=== PATIENT | female | born 1995 | race African-American/Black ===

== ENCOUNTER 2016-05-16 16:47 | Emergency (ER) | payer SELFPAY ==
[~2016-05-16] VITALS: Ht 152.4 cm; Wt 100.0 kg
[~2016-05-16 16:47] MED LIST: BACTRIM DS 8001 TAB PO; BIRTH CONTROL PILLS; CEPHALEXIN500 M1 PO; CIPRO 500MG TA500 MG PO; DOXYCYCLINE 10100 MG PO; FLAGYL500 MG PO; FLEXERIL 1010 MG/TAB PO; HCTZ 25MG TAB25 MG PO; NAPROSYN500 MG PO; NKDA; NO HOME MEDICATIONS; NORCO 325 MG-51 TAB PO; PROTONIX 40MG T40 MG PO; SEPTRA DS 8001 TAB PO; ULTRAM 50MG TAB50 MG PO; VICODIN 5/5001 UDTAB PO; ZOFRAN 4MG T4 MG/TAB PO; ZOFRAN ODT4 MG PO
[2016-05-16 16:52] VITALS: BP 138/47; PULSE 96; TEMP 98.7
== END 2016-05-16 17:22 | disposition home or self-care (01) ==
LOC: COL.ER 16:47
DX: K00.6 Disturbances in tooth eruption (principal); F17.210 Nicotine dependence, cigarettes, uncomplicated

== ENCOUNTER 2016-08-21 13:10 | Emergency (ER) | payer SELFPAY ==
[~2016-08-21] VITALS: Ht 152.4 cm; Wt 100.0 kg
[2016-08-21 13:12] VITALS: BP 139/86; TEMP 99.2
[2016-08-21 14:03] LABS: BASO # 0.1 (0.0-0.2); BASO % 0.8 % (0.0-2.0); EOS # 0.2 (0.0-0.7); EOS % 2.8 % (0-4.0); GRAN # 4.9 (1.4-6.5); GRAN % 65.4 % (42.2-75.2); HEMATOCRIT 39.3 % (37.0-47.0); LYMPH # 1.7 (1.2-3.4); LYMPH % 22.5 % (20.0-51.0); MEAN CELL VOLUME 83 fl (80.0-100.0); MEAN CORPUSCULAR HEMOGLOBIN 27 pg (27.0-31.0); MEAN CORPUSCULAR HGB CONC 33 g/dl (33.0-37.0); MEAN PLATELET VOLUME 10.9 fl (7.4-10.4); MONO # 0.6 (0.1-0.6); MONO % 8.2 % (1.7-9.3); PLATELET COUNT 371 K/mm3 (130-400); RED BLOOD COUNT 4.76 M/mm3 (4.10-5.30); REDCELL DISTRIBUTION WIDTH-CV 14.4 % (11.5-14.5); WHITE BLOOD COUNT 7.4 K/mm3 (4.8-10.8)
[2016-08-21 14:16] LABS: PH 6 (5-8); URINE APPEARANCE Hazy; URINE BACTERIA None Seen /hpf; URINE BILIRUBIN Negative (NEGATIVE); URINE BLOOD Negative (NEGATIVE); URINE COLOR Yellow; URINE GLUCOSE Negative (NEGATIVE); URINE KETONE Negative (NEGATIVE); URINE RBC 0-2 /hpf; URINE WBC 0-2 /hpf
[2016-08-21 14:31] LABS: ADJUSTED CALCIUM 8.7 mg/dL (8.4-10.2); ALBUMIN 4.2 gm/dL (3.5-5.0); BILIRUBIN,TOTAL 0.8 mg/dL (0.0-1.0); CALCIUM 8.9 mg/dL (8.4-10.2); CREATININE, serum 0.64 mg/dL (0.52-1.25); POTASSIUM 3.3 mmol/L (3.4-5.0); TOTAL PROTEIN 7.4 gm/dL (6.4-8.2)
[2016-08-21] MEDS ORDERED: ZOFRAN ODT4 MG PO (14:58)
[2016-08-21] MEDS ORDERED: PROTONIX 40MG T40 MG PO (14:58)
[2016-08-21 15:06] VITALS: PULSE 86
== END 2016-08-21 15:07 | disposition home or self-care (01) ==
LOC: COL.ER 13:10
PROVIDERS: Emergency Medicine
DX: R10.13 Epigastric pain (principal)

== ENCOUNTER 2016-09-21 12:18 | Emergency (ER) | payer SELFPAY ==
[~2016-09-21] VITALS: Ht 152.4 cm; Wt 97.7 kg
[2016-09-21 12:39] VITALS: BP 117/101; PULSE 82; TEMP 98.6
[2016-09-21 13:51] LABS: PH 6 (5-8); URINE APPEARANCE Hazy; URINE BACTERIA None Seen /hpf; URINE BILIRUBIN Negative (NEGATIVE); URINE BLOOD Negative (NEGATIVE); URINE COLOR Yellow; URINE GLUCOSE Negative (NEGATIVE); URINE KETONE Negative (NEGATIVE); URINE RBC 0-2 /hpf; URINE WBC 0-2 /hpf
== END 2016-09-21 14:51 | disposition home or self-care (01) ==
LOC: COL.ER 12:18
PROVIDERS: Physician Assistant
DX: Z03.89 Encounter for observation for other suspected diseases and conditions ruled out (principal); Z32.02 Encounter for pregnancy test, result negative

== ENCOUNTER 2016-11-05 19:15 | Emergency (ER) | payer SELFPAY ==
[~2016-11-05] VITALS: Ht 152.4 cm; Wt 98.4 kg
[2016-11-05 19:18] VITALS: BP 138/77; TEMP 99.1
[2016-11-05 20:30] LABS: HEMATOCRIT 37.7 % (37.0-47.0); HEMOGLOBIN 12.6 g/dl (12.5-16.0); MEAN CELL VOLUME 83 fl (80.0-100.0); MEAN CORPUSCULAR HEMOGLOBIN 28 pg (27.0-31.0); MEAN CORPUSCULAR HGB CONC 33 g/dl (33.0-37.0); MEAN PLATELET VOLUME 11.4 fl (7.4-10.4); PLATELET COUNT 310 K/mm3 (130-400); RED BLOOD COUNT 4.54 M/mm3 (4.10-5.30); REDCELL DISTRIBUTION WIDTH-CV 14.4 % (11.5-14.5); WHITE BLOOD COUNT 8.4 K/mm3 (4.8-10.8)
[2016-11-05 20:44] LABS: ALBUMIN 3.9 gm/dL (3.5-5.0); BILIRUBIN,TOTAL 0.3 mg/dL (0.0-1.0); CALCIUM 8.9 mg/dL (8.4-10.2); CREATININE, serum 0.66 mg/dL (0.52-1.25); POTASSIUM 3.2 mmol/L (3.4-5.0); TOTAL PROTEIN 7.1 gm/dL (6.4-8.2)
[2016-11-05 21:32] VITALS: PULSE 74
== END 2016-11-05 21:32 | disposition home or self-care (01) ==
LOC: COL.ER 19:15
PROVIDERS: Physician Assistant Medical
DX: R60.0 Localized edema (principal)

== ENCOUNTER 2016-12-10 14:45 | Emergency (ER) | payer SELFPAY ==
[~2016-12-10] VITALS: Ht 152.4 cm; Wt 101.2 kg
[2016-12-10 14:48] VITALS: BP 150/93; PULSE 75; TEMP 98.9
== END 2016-12-10 16:28 | disposition home or self-care (01) ==
LOC: COL.ER 14:45
DX: R60.0 Localized edema (principal)

== ENCOUNTER 2017-02-10 17:19 | Emergency (ER) | payer SELFPAY ==
[~2017-02-10] VITALS: Ht 152.4 cm; Wt 100.0 kg
[2017-02-10 17:21] VITALS: TEMP 99.2
[2017-02-10 17:50] LABS: COLLECTION METHOD CLEAN CATCH
[2017-02-10 18:16] LABS: MUCOUS Present /lpf; PH 5 (5-8); URINE APPEARANCE Hazy; URINE BACTERIA None Seen /hpf; URINE BILIRUBIN Positive (NEGATIVE); URINE BLOOD Negative (NEGATIVE); URINE COLOR Amber; URINE GLUCOSE Negative (NEGATIVE); URINE KETONE 1+ (NEGATIVE); URINE LEUKOCYTE ESTERASE Negative (NEGATIVE); URINE PROTEIN(semi-quant) 2+ (NEGATIVE); URINE RBC 0-2 /hpf; URINE UROBILINOGEN >=4.0 mg/dL (NEGATIVE)
[2017-02-10] MEDS ORDERED: BONINE25 MG PO (18:27)
[2017-02-10 18:38] VITALS: BP 102/78; PULSE 87
== END 2017-02-10 18:38 | disposition home or self-care (01) ==
LOC: COL.ER 17:19
PROVIDERS: Nurse Practitioner
DX: R42 Dizziness and giddiness (principal); F17.210 Nicotine dependence, cigarettes, uncomplicated; Z32.02 Encounter for pregnancy test, result negative

== ENCOUNTER 2017-05-17 11:57 | Emergency (ER) | payer OTHER ==
[~2017-05-17] VITALS: Ht 152.4 cm; Wt 97.7 kg
[~2017-05-17 11:57] MED LIST changes: +BONINE25 MG PO; +MAGIC MOUTH PO
[2017-05-17 12:27] VITALS: BP 138/77; PULSE 86; TEMP 98.7
== END 2017-05-17 15:05 | disposition home or self-care (01) ==
LOC: COL.ER 11:57
DX: J02.9 Acute pharyngitis, unspecified (principal); F17.210 Nicotine dependence, cigarettes, uncomplicated; Z98.890 Other specified postprocedural states

== ENCOUNTER 2017-06-17 10:36 | Emergency (ER) | payer OTHER ==
[~2017-06-17] VITALS: Ht 152.4 cm; Wt 95.5 kg
[2017-06-17 10:46] VITALS: BP 134/72; PULSE 85; TEMP 99.1
[2017-06-17] MEDS ORDERED: BACTRIM DS 8001 TAB PO (11:30)
== END 2017-06-17 11:35 | disposition home or self-care (01) ==
LOC: COL.ER 10:36
DX: J33.9 Nasal polyp, unspecified (principal); F17.210 Nicotine dependence, cigarettes, uncomplicated; Z86.14 Personal history of Methicillin resistant Staphylococcus aureus infection

== ENCOUNTER → 2017-06-18 | Outpatient (CLI) | payer OTHER | LOC: ZCOL.LAB 14:21 | DX: J34.89 Other specified disorders of nose and nasal sinuses (principal) ==

== ENCOUNTER 2017-08-18 11:11 | Emergency (ER) | payer OTHER ==
[~2017-08-18] VITALS: Ht 152.4 cm; Wt 99.9 kg
[2017-08-18 12:12] VITALS: BP 144/81; PULSE 78; TEMP 98.1
[2017-08-18 12:19] LABS: BASO # 0.1 (0.0-0.2); BASO % 0.9 % (0.0-2.0); EOS # 0.3 (0.0-0.7); EOS % 4.3 % (0-4.0); GRAN # 4.4 (1.4-6.5); GRAN % 61.8 % (42.2-75.2); HEMATOCRIT 39.2 % (37.0-47.0); LYMPH # 1.7 (1.2-3.4); LYMPH % 23.4 % (20.0-51.0); MEAN CELL VOLUME 83 fl (80.0-100.0); MEAN CORPUSCULAR HEMOGLOBIN 28 pg (27.0-31.0); MEAN CORPUSCULAR HGB CONC 33 g/dl (33.0-37.0); MEAN PLATELET VOLUME 10.6 fl (7.4-10.4); MONO # 0.7 (0.1-0.6); MONO % 9.5 % (1.7-9.3); PLATELET COUNT 366 K/mm3 (130-400); REDCELL DISTRIBUTION WIDTH-CV 13.9 % (11.5-14.5)
[2017-08-18 12:34] LABS: ALBUMIN 3.9 gm/dL (3.5-5.0); BILIRUBIN,TOTAL 0.3 mg/dL (0.0-1.0); CALCIUM 9.1 mg/dL (8.4-10.2); CREATININE, serum 0.65 mg/dL (0.52-1.25); POTASSIUM 3.6 mmol/L (3.4-5.0); TOTAL PROTEIN 7.9 gm/dL (6.4-8.2)
[2017-08-18] MEDS ORDERED: ZOFRAN ODT4 MG PO (12:41)
== END 2017-08-18 12:50 | disposition home or self-care (01) ==
LOC: COL.ER 11:11
PROVIDERS: Physician Assistant Medical
DX: R11.0 Nausea (principal); R19.7 Diarrhea, unspecified; F17.210 Nicotine dependence, cigarettes, uncomplicated

== ENCOUNTER 2017-10-29 21:25 | Emergency (ER) | payer OTHER ==
[~2017-10-29] VITALS: Ht 152.4 cm; Wt 98.0 kg
[2017-10-29 21:29] VITALS: BP 126/84; PULSE 98; TEMP 99.3
== END 2017-10-29 22:24 | disposition home or self-care (01) ==
LOC: COL.ER 21:25
DX: S93.402A Sprain of unspecified ligament of left ankle, initial encounter (principal); F17.210 Nicotine dependence, cigarettes, uncomplicated; X50.0XXA Overexertion from strenuous movement or load, initial encounter; Y92.410 Unspecified street and highway as the place of occurrence of the external cause

== ENCOUNTER 2017-11-22 13:20 | Emergency (ER) | payer OTHER ==
[~2017-11-22 13:20] MED LIST changes: +AMOXICILLIN 8751 TAB PO
[2017-11-22 13:31] VITALS: BP 123/89; PULSE 100; TEMP 99
== END 2017-11-22 13:40 | disposition home or self-care (01) ==
LOC: COL.ER 13:20
DX: S61.412D Laceration without foreign body of left hand, subsequent encounter (principal); S61.411D Laceration without foreign body of right hand, subsequent encounter; X58.XXXD Exposure to other specified factors, subsequent encounter

== ENCOUNTER 2018-01-30 12:47 | Emergency (ER) | payer OTHER ==
[~2018-01-30] VITALS: Ht 152.4 cm; Wt 90.9 kg
[2018-01-30 12:50] VITALS: TEMP 98.7
[2018-01-30 13:32] LABS: BASO # 0.1 (0.0-0.2); BASO % 0.9 % (0.0-2.0); EOS # 0.2 (0.0-0.7); EOS % 2.2 % (0-4.0); GRAN # 5.3 (1.4-6.5); GRAN % 69.6 % (42.2-75.2); HEMATOCRIT 41.2 % (37.0-47.0); HEMOGLOBIN 13.5 g/dl (12.5-16.0); LYMPH # 1.5 (1.2-3.4); LYMPH % 19.8 % (20.0-51.0); MEAN CELL VOLUME 84 fl (80.0-100.0); MEAN CORPUSCULAR HEMOGLOBIN 28 pg (27.0-31.0); MEAN CORPUSCULAR HGB CONC 33 g/dl (33.0-37.0); MEAN PLATELET VOLUME 10.5 fl (7.4-10.4); MONO # 0.6 (0.1-0.6); MONO % 7.2 % (1.7-9.3); PLATELET COUNT 392 K/mm3 (130-400); RED BLOOD COUNT 4.89 M/mm3 (4.10-5.30); REDCELL DISTRIBUTION WIDTH-CV 14.5 % (11.5-14.5)
[2018-01-30 13:41] LABS: ALBUMIN 4.1 gm/dL (3.5-5.0); BILIRUBIN,TOTAL 0.3 mg/dL (0.0-1.0); CALCIUM 9.1 mg/dL (8.4-10.2); CREATININE, serum 0.62 mg/dL (0.52-1.25); POTASSIUM 3.9 mmol/L (3.4-5.0); TOTAL PROTEIN 7.6 gm/dL (6.4-8.2)
[2018-01-30 13:59] VITALS: BP 133/90; PULSE 96
== END 2018-01-30 14:00 | disposition home or self-care (01) ==
LOC: COL.ER 12:47
PROVIDERS: Physician Assistant
DX: R60.9 Edema, unspecified (principal); F17.210 Nicotine dependence, cigarettes, uncomplicated

== ENCOUNTER 2018-05-12 15:23 | Emergency (ER) | payer SELFPAY ==
[~2018-05-12] VITALS: Ht 152.4 cm; Wt 94.5 kg
[2018-05-12 15:25] VITALS: TEMP 98.2
[2018-05-12 16:19] LABS: BASO # 0.1 (0.0-0.2); BASO % 0.8 % (0.0-2.0); EOS # 0.1 (0.0-0.7); EOS % 1.4 % (0-4.0); GRAN # 6.3 (1.4-6.5); GRAN % 68.9 % (42.2-75.2); HEMATOCRIT 38.9 % (37.0-47.0); HEMOGLOBIN 12.7 g/dl (12.5-16.0); LYMPH # 1.6 (1.2-3.4); LYMPH % 17.9 % (20.0-51.0); MEAN CELL VOLUME 84 fl (80.0-100.0); MEAN CORPUSCULAR HEMOGLOBIN 27 pg (27.0-31.0); MEAN CORPUSCULAR HGB CONC 33 g/dl (33.0-37.0); MEAN PLATELET VOLUME 10.9 fl (7.4-10.4); MONO % 10.7 % (1.7-9.3); PLATELET COUNT 401 K/mm3 (130-400); RED BLOOD COUNT 4.64 M/mm3 (4.10-5.30); REDCELL DISTRIBUTION WIDTH-CV 14.2 % (11.5-14.5)
[2018-05-12 17:07] VITALS: BP 149/92; PULSE 88
== END 2018-05-12 17:10 | disposition home or self-care (01) ==
LOC: COL.ER 15:23
PROVIDERS: Emergency Medicine
DX: N94.6 Dysmenorrhea, unspecified (principal); N93.8 Other specified abnormal uterine and vaginal bleeding
CPT/HCPCS: J1885

== ENCOUNTER 2018-05-16 22:17 | Emergency (ER) | payer SELFPAY ==
[~2018-05-16] VITALS: Ht 152.4 cm; Wt 90.9 kg
[2018-05-16 22:19] VITALS: TEMP 99.7
[2018-05-16 23:05] LABS: COLLECTION METHOD CLEAN CATCH
[2018-05-16 23:09] LABS: BASO # 0.1 (0.0-0.2); BASO % 0.7 % (0.0-2.0); EOS # 0.1 (0.0-0.7); EOS % 1.2 % (0-4.0); GRAN # 4.3 (1.4-6.5); GRAN % 64.8 % (42.2-75.2); HEMATOCRIT 37.3 % (37.0-47.0); HEMOGLOBIN 12.2 g/dl (12.5-16.0); LYMPH # 1.3 (1.2-3.4); LYMPH % 19.9 % (20.0-51.0); MEAN CELL VOLUME 84 fl (80.0-100.0); MEAN CORPUSCULAR HEMOGLOBIN 27 pg (27.0-31.0); MEAN CORPUSCULAR HGB CONC 33 g/dl (33.0-37.0); MEAN PLATELET VOLUME 10.8 fl (7.4-10.4); MONO # 0.9 (0.1-0.6); PLATELET COUNT 326 K/mm3 (130-400); RED BLOOD COUNT 4.45 M/mm3 (4.10-5.30); REDCELL DISTRIBUTION WIDTH-CV 13.7 % (11.5-14.5)
[2018-05-16 23:21] LABS: HYALINE CAST >12 /lpf; MUCOUS Present /lpf; PH 6 (5-8); SQUAMOUS EPITHELIAL 0-2 /hpf; URINE APPEARANCE Cloudy; URINE BACTERIA Rare /hpf; URINE BILIRUBIN Negative (NEGATIVE); URINE BLOOD 2+ (NEGATIVE); URINE COLOR Yellow; URINE GLUCOSE Negative (NEGATIVE); URINE KETONE Negative (NEGATIVE); URINE LEUKOCYTE ESTERASE 3+ (NEGATIVE); URINE NITRATE Positive (NEGATIVE); URINE PROTEIN(semi-quant) 2+ (NEGATIVE); URINE RBC 20-50 /hpf; URINE UROBILINOGEN >=4.0 mg/dL (NEGATIVE)
[2018-05-16] MEDS ORDERED: MACROBID 1100 MG/CAP PO (23:27)
[2018-05-17 00:39] VITALS: BP 128/80; PULSE 99
== END 2018-05-17 00:39 | disposition home or self-care (01) ==
LOC: COL.ER 22:17
PROVIDERS: Family Medicine
DX: N30.90 Cystitis, unspecified without hematuria (principal)
CPT/HCPCS: J0696; J1885; J7030

== ENCOUNTER → 2018-10-13 | Emergency (ER) | payer SELFPAY ==
[~2018-10-13] VITALS: Ht 152.4 cm; Wt 90.9 kg
[~2018-10-13] MED LIST changes: +K-DUR20 MEQ PO; +MACROBID 1100 MG/CAP PO; +OMNICEF 300MG300 MG PO
[2018-10-13 20:03] LABS: BASO # 0.1 (0.0-0.2); BASO % 0.6 % (0.0-2.0); EOS % 0.2 % (0-4.0); GRAN # 5.6 (1.4-6.5); GRAN % 68.1 % (42.2-75.2); HEMATOCRIT 37.4 % (37.0-47.0); HEMOGLOBIN 12.1 g/dl (12.5-16.0); LYMPH # 1.3 (1.2-3.4); MEAN CELL VOLUME 84 fl (80.0-100.0); MEAN CORPUSCULAR HEMOGLOBIN 27 pg (27.0-31.0); MEAN CORPUSCULAR HGB CONC 32 g/dl (33.0-37.0); MONO # 1.2 (0.1-0.6); MONO % 14.9 % (1.7-9.3); PLATELET COUNT 327 K/mm3 (130-400); RED BLOOD COUNT 4.48 M/mm3 (4.10-5.30); REDCELL DISTRIBUTION WIDTH-CV 14.3 % (11.5-14.5)
[2018-10-13 20:18] LABS: ALANINE AMINOTRANSFERASE 13 U/L (9-52); ALBUMIN 3.9 gm/dL (3.5-5.0); ALKALINE PHOSPHATASE 102 U/L (50-136); ANION GAP 9 mmol/L (7-16); AST,SGOT 27 U/L (15-37); BILIRUBIN,TOTAL 0.5 mg/dL (0.0-1.0); BLOOD UREA NITROGEN 6 mg/dL (7-17); CALCIUM 8.7 mg/dL (8.4-10.2); CARBON DIOXIDE 29 mmol/L (22-30); CHLORIDE 100 mmol/L (98-107); CREATININE, serum 0.81 (0.52-1.25); GLUCOSE 93 mg/dL (74-106); SODIUM 138 mmol/L (137-145); TOTAL PROTEIN 7.7 gm/dL (6.4-8.2)
[2018-10-13 20:22] LABS: POTASSIUM 2.8 mmol/L (3.4-5.0)
[2018-10-13 20:36] LABS: C-REACTIVE PROTEIN 20.5 mg/dL (0.0-0.9); HCG,QUANTITATIVE < 2 mIU/mL (0-5)
[2018-10-13 20:39] VITALS: BP 117/105; PULSE 93; TEMP 102.2
[2018-10-13 21:07] LABS: COLLECTION METHOD CLEAN CATCH
[2018-10-13 21:18] LABS: STREP SCREEN NEGATIVE
[2018-10-13 21:22] LABS: MUCOUS Present /lpf; PH 6 (5-8); URINE APPEARANCE Cloudy; URINE BACTERIA Rare /hpf; URINE BILIRUBIN Negative (NEGATIVE); URINE BLOOD 1+ (NEGATIVE); URINE COLOR Amber; URINE GLUCOSE Negative (NEGATIVE); URINE KETONE Negative (NEGATIVE); URINE LEUKOCYTE ESTERASE 3+ (NEGATIVE); URINE NITRATE Positive (NEGATIVE); URINE PROTEIN(semi-quant) 2+ (NEGATIVE); URINE UROBILINOGEN >=4.0 mg/dL (NEGATIVE)
== END ==
LOC: COL.ER 18:53
PROVIDERS: Emergency Medicine
DX: N39.0 Urinary tract infection, site not specified (principal); E87.6 Hypokalemia; F17.210 Nicotine dependence, cigarettes, uncomplicated
CPT/HCPCS: J7030

== ENCOUNTER 2019-01-06 20:11 | Emergency (ER) | payer SELFPAY ==
[~2019-01-06] VITALS: Ht 152.4 cm; Wt 90.9 kg
[2019-01-06 20:17] VITALS: BP 140/83; TEMP 98.6
[2019-01-06 20:41] LABS: COLLECTION METHOD CLEAN CATCH
[2019-01-06 21:03] LABS: MUCOUS Present /lpf; PH 6 (5-8); URINE APPEARANCE Clear; URINE BACTERIA Rare /hpf; URINE BILIRUBIN Negative (NEGATIVE); URINE BLOOD Negative (NEGATIVE); URINE COLOR Yellow; URINE GLUCOSE Negative (NEGATIVE); URINE KETONE Negative (NEGATIVE); URINE LEUKOCYTE ESTERASE Trace (NEGATIVE); URINE NITRATE Negative (NEGATIVE); URINE PROTEIN(semi-quant) Negative (NEGATIVE)
[2019-01-06 22:04] VITALS: PULSE 81
== END 2019-01-06 22:04 | disposition home or self-care (01) ==
LOC: COL.ER 20:11
PROVIDERS: Nurse Practitioner
DX: Z20.2 Contact with and (suspected) exposure to infections with a predominantly sexual mode of transmission (principal); F17.210 Nicotine dependence, cigarettes, uncomplicated
CPT/HCPCS: J0696

== ENCOUNTER 2019-03-20 09:08 | Emergency (ER) | payer SELFPAY ==
[~2019-03-20] VITALS: Ht 165.1 cm; Wt 95.5 kg
[2019-03-20 09:17] VITALS: BP 142/68; TEMP 98.4
[2019-03-20] MEDS ORDERED: NORCO 325 MG-51 TAB PO (09:43)
[2019-03-20] MEDS ORDERED: AMOXICILLIN 50500 MG PO (09:43)
[2019-03-20 10:25] VITALS: PULSE 87
== END 2019-03-20 10:25 | disposition home or self-care (01) ==
LOC: COL.ER 09:08
DX: K02.9 Dental caries, unspecified (principal); F17.210 Nicotine dependence, cigarettes, uncomplicated

== ENCOUNTER 2019-03-24 09:43 | Emergency (ER) | payer SELFPAY ==
[~2019-03-24] VITALS: Ht 152.4 cm; Wt 95.3 kg
[~2019-03-24 09:43] MED LIST changes: +AMOXICILLIN 50500 MG PO
[2019-03-24 09:47] VITALS: BP 157/98; PULSE 84; TEMP 99.1
[2019-03-24] MEDS ORDERED: NORCO 325 MG-51 TAB PO (13:09)
[2019-03-24] MEDS ORDERED: CLEOCIN HCL300 MG PO (13:09)
== END 2019-03-24 11:00 | disposition left against medical advice (07) ==
LOC: COL.ER 09:43
DX: K04.7 Periapical abscess without sinus (principal)

== ENCOUNTER 2019-03-24 11:42 | Emergency (ER) | payer SELFPAY ==
[~2019-03-24] VITALS: Ht 152.4 cm; Wt 95.5 kg
[2019-03-24 11:49] VITALS: TEMP 98.6
[2019-03-24] MEDS ORDERED: CLEOCIN HCL300 MG PO (13:09)
[2019-03-24] MEDS ORDERED: NORCO 325 MG-51 TAB PO (13:09)
[2019-03-24 13:20] VITALS: BP 168/95; PULSE 84
== END 2019-03-24 13:24 | disposition home or self-care (01) ==
LOC: COL.ER 11:42
DX: K04.7 Periapical abscess without sinus (principal); F17.210 Nicotine dependence, cigarettes, uncomplicated
CPT/HCPCS: J1100; J2405; J7030

== ENCOUNTER 2019-03-28 01:10 | Emergency (ER) | payer SELFPAY ==
[~2019-03-28] VITALS: Ht 152.4 cm; Wt 95.5 kg
[~2019-03-28 01:10] MED LIST changes: +CLEOCIN HCL300 MG PO
[2019-03-28 01:20] VITALS: BP 172/88; PULSE 83; TEMP 98.5
[2019-03-28] MEDS ORDERED: NORCO 325 MG-51 TAB PO (01:55)
== END 2019-03-28 02:03 | disposition home or self-care (01) ==
LOC: COL.ER 01:10
DX: K08.89 Other specified disorders of teeth and supporting structures (principal); F17.210 Nicotine dependence, cigarettes, uncomplicated

== ENCOUNTER 2019-05-06 22:36 | Emergency (ER) | payer SELFPAY ==
[~2019-05-06] VITALS: Ht 152.4 cm; Wt 95.5 kg
[2019-05-06 22:47] VITALS: TEMP 100
[2019-05-06] MEDS ORDERED: AMOXICILLIN 8751 TAB PO (23:18)
[2019-05-06] MEDS ORDERED: NORCO 325 MG-51 TAB PO (23:18)
[2019-05-06 23:37] VITALS: BP 163/87; PULSE 91
== END 2019-05-06 23:37 | disposition home or self-care (01) ==
LOC: COL.ER 22:36
DX: K08.89 Other specified disorders of teeth and supporting structures (principal)

== ENCOUNTER 2019-05-17 13:31 | Emergency (ER) | payer SELFPAY ==
[~2019-05-17] VITALS: Ht 152.4 cm; Wt 95.5 kg
[2019-05-17 13:56] VITALS: BP 149/91; TEMP 98.7
[2019-05-17] MEDS ORDERED: CLEOCIN HCL300 MG PO (15:50)
[2019-05-17 16:10] VITALS: PULSE 88
== END 2019-05-17 16:10 | disposition home or self-care (01) ==
LOC: COL.ER 13:31
DX: K08.89 Other specified disorders of teeth and supporting structures (principal)

== ENCOUNTER 2019-08-15 15:34 | Emergency (ER) | payer SELFPAY ==
[~2019-08-15] VITALS: Ht 152.4 cm; Wt 104.5 kg
[2019-08-15 15:51] VITALS: BP 125/97; TEMP 98.4
[2019-08-15 16:36] VITALS: PULSE 90
== END 2019-08-15 16:37 | disposition home or self-care (01) ==
LOC: COL.ER 15:34
DX: S93.402A Sprain of unspecified ligament of left ankle, initial encounter (principal); W19.XXXA Unspecified fall, initial encounter; X50.1XXA Overexertion from prolonged static or awkward postures, initial encounter; Y92.009 Unspecified place in unspecified non-institutional (private) residence as the place of occurrence of the external cause

== ENCOUNTER 2019-10-27 01:43 | Emergency (ER) | payer SELFPAY ==
[~2019-10-27] VITALS: Ht 152.4 cm; Wt 130.9 kg
[2019-10-27 01:46] VITALS: TEMP 97.9
[2019-10-27] MEDS ORDERED: BACTRIM DS 8001 TAB PO (02:01)
[2019-10-27 02:25] VITALS: BP 152/70; PULSE 80
== END 2019-10-27 02:25 | disposition home or self-care (01) ==
LOC: COL.ER 01:43
DX: N61.0 Mastitis without abscess (principal); F17.210 Nicotine dependence, cigarettes, uncomplicated

== ENCOUNTER 2019-11-01 15:10 | Emergency (ER) | payer SELFPAY ==
[~2019-11-01] VITALS: Ht 152.4 cm; Wt 127.3 kg
[2019-11-01 15:15] VITALS: BP 144/99; PULSE 106; TEMP 98.5
== END 2019-11-01 16:08 | disposition home or self-care (01) ==
LOC: COL.ER 15:10
DX: N61.1 Abscess of the breast and nipple (principal); F17.210 Nicotine dependence, cigarettes, uncomplicated

== ENCOUNTER 2020-02-29 03:13 | Emergency (ER) | payer SELFPAY ==
[~2020-02-29] VITALS: Ht 152.4 cm; Wt 122.7 kg
[2020-02-29 03:21] VITALS: TEMP 97.8
[2020-02-29 03:50] LABS: BASO # 0.1 (0.0-0.2); BASO % 0.8 % (0.0-2.0); EOS # 0.5 (0.0-0.7); EOS % 5.2 % (0-4.0); GRAN # 6.2 (1.4-6.5); GRAN % 63.9 % (42.2-75.2); HEMATOCRIT 39.9 % (37.0-47.0); HEMOGLOBIN 12.8 g/dl (12.5-16.0); LYMPH % 21.1 % (20.0-51.0); MEAN CELL VOLUME 80 fl (80.0-100.0); MEAN CORPUSCULAR HEMOGLOBIN 26 pg (27.0-31.0); MEAN CORPUSCULAR HGB CONC 32 g/dl (33.0-37.0); MEAN PLATELET VOLUME 10.1 fl (7.4-10.4); MONO # 0.8 (0.1-0.6); MONO % 8.6 % (1.7-9.3); PLATELET COUNT 447 K/mm3 (130-400); RED BLOOD COUNT 4.96 M/mm3 (4.10-5.30); REDCELL DISTRIBUTION WIDTH-CV 15.8 % (11.5-14.5)
[2020-02-29 03:59] LABS: ALANINE AMINOTRANSFERASE 27 U/L (4-34); ALBUMIN 4.5 gm/dL (3.5-5.0); ALKALINE PHOSPHATASE 120 U/L (50-136); ANION GAP 6 mmol/L (7-16); AST,SGOT 36 U/L (15-37); BILIRUBIN,TOTAL 0.4 mg/dL (0.0-1.0); BLOOD UREA NITROGEN 10 mg/dL (7-17); C-REACTIVE PROTEIN 2.4 mg/dL (0.0-0.9); CALCIUM 9.4 mg/dL (8.4-10.2); CARBON DIOXIDE 31 mmol/L (22-30); CHLORIDE 103 mmol/L (98-107); CREATININE, serum 0.68 (0.52-1.25); GLUCOSE 109 mg/dL (74-106); LIPASE 68 U/L (23-300); POTASSIUM 3.6 mmol/L (3.4-5.0); SODIUM 140 mmol/L (137-145); TOTAL PROTEIN 8.3 gm/dL (6.4-8.2)
[2020-02-29 04:10] LABS: TROPONIN-I < 0.012 ng/mL (0.000-0.035)
[2020-02-29] MEDS ORDERED: FLEXERIL 1010 MG/TAB PO (05:39)
[2020-02-29 06:58] VITALS: BP 121/69; PULSE 85
== END 2020-02-29 07:00 | disposition home or self-care (01) ==
LOC: COL.ER 03:13
PROVIDERS: Emergency Medicine
DX: R07.89 Other chest pain (principal); Z32.02 Encounter for pregnancy test, result negative
CPT/HCPCS: J1885

== ENCOUNTER 2020-07-22 08:22 | Emergency (ER) | payer SELFPAY ==
[~2020-07-22] VITALS: Ht 152.4 cm; Wt 136.4 kg
[2020-07-22 10:23] VITALS: BP 143/90; PULSE 94; TEMP 98
[2020-07-22] MEDS ORDERED: NORCO 325 MG-51 TAB PO ×2 (12:40)
== END 2020-07-22 10:23 | disposition home or self-care (01) ==
LOC: COL.ER 08:22
DX: M25.572 Pain in left ankle and joints of left foot (principal); E66.9 Obesity, unspecified; F17.210 Nicotine dependence, cigarettes, uncomplicated; Z68.43 Body mass index [BMI] 50.0-59.9, adult; X50.9XXA Other and unspecified overexertion or strenuous movements or postures, initial encounter; Y92.59 Other trade areas as the place of occurrence of the external cause; Y99.0 Civilian activity done for income or pay

== ENCOUNTER 2020-08-17 11:44 | Emergency (ER) | payer SELFPAY ==
[~2020-08-17] VITALS: Ht 152.4 cm; Wt 136.4 kg
[2020-08-17 12:08] VITALS: TEMP 98.4
[2020-08-17 12:15] VITALS: BP 140/97; PULSE 91
== END 2020-08-17 12:15 | disposition home or self-care (01) ==
LOC: COL.ER 11:44
DX: Z00.00 Encounter for general adult medical examination without abnormal findings (principal); F17.210 Nicotine dependence, cigarettes, uncomplicated

== ENCOUNTER 2020-10-17 13:57 | Emergency (ER) | payer SELFPAY ==
[~2020-10-17] VITALS: Ht 152.4 cm; Wt 136.4 kg
[2020-10-17 14:43] VITALS: TEMP 100.5
[2020-10-17 15:18] VITALS: BP 135/70; PULSE 98
== END 2020-10-17 15:20 | disposition home or self-care (01) ==
LOC: COL.ER 13:57
DX: U07.1 COVID-19 (principal)

== ENCOUNTER 2020-11-27 21:52 | Emergency (ER) | payer SELFPAY ==
[~2020-11-27] VITALS: Ht 152.4 cm; Wt 136.4 kg
[2020-11-27 22:03] VITALS: TEMP 98.8
[2020-11-27 22:26] LABS: STREP SCREEN NEGATIVE
[2020-11-27 23:03] VITALS: BP 145/70; PULSE 64
== END 2020-11-27 23:03 | disposition home or self-care (01) ==
LOC: COL.ER 21:52
PROVIDERS: Emergency Medicine
DX: U07.1 COVID-19 (principal)

== ENCOUNTER 2021-01-31 19:36 | Emergency (ER) | payer SELFPAY ==
[~2021-01-31] VITALS: Ht 152.4 cm; Wt 136.4 kg
[2021-01-31 19:55] VITALS: BP 136/96; TEMP 98.1
[2021-01-31 20:10] VITALS: PULSE 102
== END 2021-01-31 20:11 | disposition home or self-care (01) ==
LOC: COL.ER 19:36
DX: S20.419A Abrasion of unspecified back wall of thorax, initial encounter (principal); F17.200 Nicotine dependence, unspecified, uncomplicated; X58.XXXA Exposure to other specified factors, initial encounter

== ENCOUNTER 2021-04-02 15:32 | Emergency (ER) | payer SELFPAY ==
[~2021-04-02] VITALS: Ht 152.4 cm; Wt 136.4 kg
[2021-04-02 16:10] VITALS: BP 163/101; TEMP 97.9
[2021-04-02 16:34] LABS: COLLECTION METHOD CLEAN CATCH
[2021-04-02 16:47] LABS: MUCOUS Present (NOT PRESENT); PH 6 (5-8); URINE APPEARANCE Hazy (CLEAR/HAZY); URINE BACTERIA None Seen (NONE SEEN); URINE BILIRUBIN Negative (NEGATIVE); URINE BLOOD 3+ (NEGATIVE); URINE COLOR Yellow (YELLOW); URINE GLUCOSE Negative (NEGATIVE); URINE KETONE Negative (NEGATIVE); URINE LEUKOCYTE ESTERASE Negative (NEGATIVE); URINE NITRATE Negative (NEGATIVE); URINE PROTEIN(semi-quant) Negative (NEGATIVE); URINE RBC >50 /hpf (0-2)
[2021-04-02 18:13] LABS: BASO % 0.4 % (0.0-2.0); EOS # 0.4 K/mm3 (0.0-0.7); EOS % 4.5 % (0.0-4.0); GRAN # 5.7 K/mm3 (1.4-6.5); HEMATOCRIT 38.6 % (37.0-47.0); HEMOGLOBIN 11.7 g/dl (12.5-16.0); LYMPH # 2.2 K/mm3 (1.2-3.4); LYMPH % 23.4 % (20.0-51.0); MEAN CELL VOLUME 83 fl (80.0-100.0); MEAN CORPUSCULAR HEMOGLOBIN 25 pg (27-31); MEAN CORPUSCULAR HGB CONC 30 g/dl (33.0-37.0); MEAN PLATELET VOLUME 10.8 fl (7.4-10.4); MONO % 10.4 % (1.7-9.3); PLATELET COUNT 389 K/mm3 (130-400); RED BLOOD COUNT 4.65 M/mm3 (4.10-5.30); REDCELL DISTRIBUTION WIDTH-CV 17.2 % (11.5-14.5)
[2021-04-02 18:32] LABS: ALBUMIN 3.6 gm/dL (3.5-5.0); BILIRUBIN,TOTAL 0.3 mg/dL (0.2-1.2); CALCIUM 8.9 mg/dL (8.4-10.2); CREATININE, serum 0.76 mg/dL (0.57-1.11); TOTAL PROTEIN 6.9 gm/dL (6.2-8.1)
[2021-04-02 18:45] VITALS: PULSE 101
== END 2021-04-02 18:45 | disposition home or self-care (01) ==
LOC: COL.ER 15:32
PROVIDERS: Emergency Medicine
DX: N93.9 Abnormal uterine and vaginal bleeding, unspecified (principal); F17.210 Nicotine dependence, cigarettes, uncomplicated; E66.9 Obesity, unspecified; Z32.02 Encounter for pregnancy test, result negative; Z68.43 Body mass index [BMI] 50.0-59.9, adult

== ENCOUNTER 2021-04-16 14:13 | Emergency (ER) | payer SELFPAY ==
[~2021-04-16] VITALS: Ht 152.4 cm; Wt 140.9 kg
[2021-04-16 15:27] VITALS: TEMP 98.6
[2021-04-16 15:59] LABS: BASO % 0.3 % (0.0-2.0); EOS # 0.4 K/mm3 (0.0-0.7); EOS % 4.7 % (0.0-4.0); GRAN # 5.8 K/mm3 (1.4-6.5); HEMOGLOBIN 11.3 g/dl (12.5-16.0); LYMPH # 2.1 K/mm3 (1.2-3.4); LYMPH % 22.8 % (20.0-51.0); MEAN CELL VOLUME 83 fl (80.0-100.0); MEAN CORPUSCULAR HEMOGLOBIN 26 pg (27-31); MEAN CORPUSCULAR HGB CONC 31 g/dl (33.0-37.0); MEAN PLATELET VOLUME 10.6 fl (7.4-10.4); MONO # 0.7 K/mm3 (0.1-0.6); MONO % 7.8 % (1.7-9.3); PLATELET COUNT 418 K/mm3 (130-400); RED BLOOD COUNT 4.33 M/mm3 (4.10-5.30); REDCELL DISTRIBUTION WIDTH-CV 17.1 % (11.5-14.5)
[2021-04-16] MEDS ORDERED: LOESTRIN1.5/30 28DAY PO (16:30)
[2021-04-16 17:15] VITALS: BP 150/96; PULSE 99
== END 2021-04-16 17:16 | disposition home or self-care (01) ==
LOC: COL.ER 14:13
PROVIDERS: Physician Assistant
DX: N93.9 Abnormal uterine and vaginal bleeding, unspecified (principal)
CPT/HCPCS: J1885

== ENCOUNTER 2021-05-23 16:55 | Emergency (ER) | payer SELFPAY ==
[~2021-05-23] VITALS: Ht 152.4 cm; Wt 140.9 kg
[~2021-05-23 16:55] MED LIST changes: +LOESTRIN1.5/30 28DAY PO
[2021-05-23 17:05] VITALS: TEMP 98.8
[2021-05-23] MEDS ORDERED: MOTRIN 800800 MG/TAB PO (17:21)
[2021-05-23 18:24] LABS: HEMATOCRIT 39.7 % (37.0-47.0); HEMOGLOBIN 12.4 g/dl (12.5-16.0); MEAN CELL VOLUME 81 fl (80.0-100.0); MEAN CORPUSCULAR HEMOGLOBIN 25 pg (27-31); MEAN CORPUSCULAR HGB CONC 31 g/dl (33.0-37.0); MEAN PLATELET VOLUME 10.6 fl (7.4-10.4); PLATELET COUNT 501 K/mm3 (130-400); RED BLOOD COUNT 4.88 M/mm3 (4.10-5.30); REDCELL DISTRIBUTION WIDTH-CV 16.1 % (11.5-14.5)
[2021-05-23 18:59] VITALS: BP 147/92; PULSE 91
== END 2021-05-23 19:06 | disposition home or self-care (01) ==
LOC: COL.ER 16:55
PROVIDERS: Physician Assistant
DX: N93.8 Other specified abnormal uterine and vaginal bleeding (principal)
CPT/HCPCS: J1885

== ENCOUNTER 2023-01-23 16:13 | Emergency (ER) | payer OTHER ==
[~2023-01-23] VITALS: Ht 152.4 cm; Wt 122.7 kg
[~2023-01-23 16:13] MED LIST changes: +MOTRIN 800800 MG/TAB PO; +ZESTRIL 10MG10 MG PO
[2023-01-23 16:32] VITALS: TEMP 98
[2023-01-23 17:07] VITALS: BP 143/83; PULSE 96
[2023-01-23] MEDS ORDERED: PEN-VEE K500 MG PO (17:09)
== END 2023-01-23 17:07 | disposition home or self-care (01) ==
LOC: COL.ER 16:13
DX: K02.9 Dental caries, unspecified (principal); Z28.310 Unvaccinated for COVID-19

== ENCOUNTER 2023-06-06 17:56 | Emergency (ER) | payer SELFPAY ==
[~2023-06-06] VITALS: Ht 152.4 cm; Wt 113.6 kg
[~2023-06-06 17:56] MED LIST changes: +PEN-VEE K500 MG PO
[2023-06-06] MEDS ORDERED: Ibuprofen 400 MG TAB PO ONE (21:15)
[2023-06-06] MEDS ORDERED: guaiFENesin/Codeine Oral Soln 100-10 MG/5 ML 5 ML UD PO ONE (21:15)
[2023-06-06] MEDS ORDERED: Acetaminophen 500 MG TAB PO ONE (21:15)
[2023-06-06 21:29] VITALS: BP 130/82; PULSE 83; TEMP 98.4
== END 2023-06-06 21:29 | disposition home or self-care (01) ==
LOC: COL.ER 17:56
DX: J06.9 Acute upper respiratory infection, unspecified (principal)

== ENCOUNTER 2023-11-24 15:22 | Emergency (ER) | payer SELFPAY ==
[~2023-11-24] VITALS: Ht 162.6 cm; Wt 109.1 kg
[2023-11-24 15:34] VITALS: BP 178/99; TEMP 98.4
[2023-11-24] MEDS ORDERED: AMOXICILLIN 8751 TAB PO (16:57)
[2023-11-24] MEDS ORDERED: Home HYDROcodone/Acetaminophen 5/325 MG #4 TABS/PACK PO ONE (17:00)
[2023-11-24] MEDS ORDERED: Amoxicillin/Clavulanate K+ 875/125 MG TAB PO ONE (17:00)
[2023-11-24 17:15] VITALS: PULSE 66
== END 2023-11-24 17:16 | disposition home or self-care (01) ==
LOC: COL.ER 15:22
DX: K05.20 Aggressive periodontitis, unspecified (principal); F17.210 Nicotine dependence, cigarettes, uncomplicated

== ENCOUNTER 2024-02-05 20:26 | Emergency (ER) | payer SELFPAY ==
[~2024-02-05] VITALS: Ht 152.4 cm; Wt 104.5 kg
[2024-02-05 20:46] VITALS: TEMP 98.5
[2024-02-05] MEDS ORDERED: NS 1,000 ML IV ONE (22:45)
[2024-02-05 23:47] LABS: COLLECTION METHOD CLEAN CATCH
[2024-02-05 23:56] LABS: BASO % 0.4 % (0.0-2.0); EOS # 0.1 K/mm3 (0.0-0.7); EOS % 1.5 % (0.0-4.0); GRAN # 5.6 K/mm3 (1.4-6.5); GRAN % 61.7 % (42.2-75.2); HEMATOCRIT 38.7 % (37.0-47.0); HEMOGLOBIN 12.9 g/dl (12.5-16.0); LYMPH # 2.4 K/mm3 (1.2-3.4); LYMPH % 26.1 % (20.0-51.0); MEAN CELL VOLUME 85 fl (80.0-100.0); MEAN CORPUSCULAR HEMOGLOBIN 28 pg (27-31); MEAN CORPUSCULAR HGB CONC 33 g/dl (33.0-37.0); MEAN PLATELET VOLUME 10.8 fl (7.4-10.4); MONO # 0.9 K/mm3 (0.1-0.6); MONO % 10.1 % (1.7-9.3); PLATELET COUNT 365 K/mm3 (130-400); RED BLOOD COUNT 4.58 M/mm3 (4.10-5.30); REDCELL DISTRIBUTION WIDTH-CV 15.3 % (11.5-14.5)
[2024-02-06 00:09] LABS: URINE APPEARANCE CLEAR (CLEAR/HAZY); URINE BLOOD NEGATIVE (NEGATIVE); URINE COLOR Dark Yellow (YELLOW); URINE GLUCOSE NEGATIVE (NEGATIVE); URINE KETONE TRACE (NEGATIVE); URINE NITRATE NEGATIVE (NEGATIVE); URINE PROTEIN(semi-quant) TRACE (NEGATIVE)
[2024-02-06 00:11] LABS: ALBUMIN 3.7 g/dL (3.5-5.0); BILIRUBIN,TOTAL 0.5 mg/dL (0.2-1.2); CREATININE, serum 0.77 mg/dL (0.57-1.11); POTASSIUM 3.3 mEq/L (3.5-4.5); TOTAL PROTEIN 7.4 g/dl (6.2-8.1)
[2024-02-06 00:55] VITALS: BP 170/114; PULSE 71
== END 2024-02-06 00:55 | disposition home or self-care (01) ==
LOC: COL.ER 20:26
PROVIDERS: Nurse Practitioner Primary Care
DX: K52.9 Noninfective gastroenteritis and colitis, unspecified (principal)
CPT/HCPCS: J7030